=== PATIENT | female | born 1995 | race Caucasian/White ===

== ENCOUNTER 2020-07-19 02:22 | Emergency (ER) | payer OTHER ==
[2020-07-19 02:34] VITALS: TEMP 98.1
[2020-07-19 03:04] LABS: Appearance,Urine Cloudy (Clear); Bacteria,Urine Rare /hpf; Bilirubin,Urine Negative (Negative); Blood,Urine Large (Negative); Color,Urine Light Red; Glucose,Urine (UA) Negative (Negative); Ketones,Urine 3+ (Negative); Leukocyte Esterase,Urine Small (Negative); Mucus,Urine Rare /hpf; Nitrite,Urine Negative (Negative); PH, Urine 5.5 (5.0-8.0); Protein,Urine 1+ (Negative); RBC,Urine >182 /hpf (0-5); Specific Gravity,Urine 1.018 (1.001-1.035); Squamous Epithelial Cell,Urine 6 /hpf (0-4); Urobilinogen,Urine <2.0 mg/dL (<2.0); WBC,Urine 5 /hpf (0-5)
[2020-07-19] MEDS ORDERED: NITROFURANTOIN MONOHYD/M-CRYST 100 MG CAP PO STA (03:48)
[2020-07-19] MEDS ORDERED: PHENAZOPYRIDINE 100 MG TAB PO STA (03:48)
--- NOTE | 2020-07-19 03:50 | ED ---
Female Urogenital HPI - General Chief complaint: Urogenital Stated complaint: Lower abd pain Time Seen by Provider: 07/19/20 02:47 Source: patient Mode of arrival: ambulatory Limitations: no limitations - History of Present Illness Initial comments: This patient is 24-year-old woman who presents to be evaluated for suprapubic pain. This pain is been going on since the evening. She states it is aching, it is worse following urination. She has not noted relieving factors. No nausea or vomiting. No change in bowel movements. In relation to areas, patient states that she has frequent spotting more or less continually. No vaginal discharge. MD Complaint: dysuria, pelvic pain Onset/Timin -: days(s) Location: suprapubic Radiation: non-radiating Severity: moderate Quality: aching Consistency: intermittent Improves with: none Worsens with: urination Patient : No - Related Data Previous Rx's Medication Instructions Recorded Nitrofurantoin Monohyd/M-Cryst 100 mg PO Q12HR #6 cap 07/19/20 [Macrobid] Phenazopyridine [Pyridium] 100 mg PO TID #6 tablet 07/19/20 Allergies Allergy/AdvReac Type Severity Reaction Status Date / Time Penicillins Allergy Rash/Hives Verified 07/19/20 02:34 Review of Systems ROS Statement: Those systems with pertinent positive or pertinent negative responses have been documented in the HPI. ROS Other: All systems not noted in ROS Statement are negative. Constitutional: Denies: fever, chills Respiratory: Denies: cough, dyspnea Cardiovascular: Denies: chest pain, palpitations, edema Gastrointestinal: Reports: as per HPI, abdominal pain. Denies: nausea, vomiting, diarrhea, constipation, melena, hematochezia Genitourinary: Reports: dysuria, abnormal menses. Denies: frequency, hematuria, discharge Musculoskeletal: Denies: back pain Skin: Denies: rash Neurological: Denies: headache, weakness Past Medical History Past Medical History: Asthma, Diabetes Mellitus History of Any Multi-Drug Resistant Organisms: None Reported Past Surgical History: No Surgical Hx Reported Past Psychological History: Anxiety, Depression Smoking Status: Never smoker Past Alcohol Use History: Occasional Past Drug Use History: None Reported General Exam Limitations: no limitations General appearance: alert, in no apparent distress Head exam: Present: atraumatic, normocephalic Eye exam: Present: normal appearance. Absent: scleral icterus, conjunctival injection Respiratory exam: Present: normal lung sounds bilaterally. Absent: respiratory distress, wheezes, rales, rhonchi, stridor Cardiovascular Exam: Present: regular rate, normal rhythm, normal heart sounds. Absent: systolic murmur, diastolic murmur, rubs, gallop GI/Abdominal exam: Present: soft. Absent: distended, tenderness, guarding, rebound, rigid, mass Extremities exam: Present: normal inspection, normal capillary refill. Absent: pedal edema, calf tenderness Back exam: Present: normal inspection. Absent: CVA tenderness (R), CVA tenderness (L) Neurological exam: Present: alert Skin exam: Present: warm, dry, intact, normal color. Absent: rash Course Vital Signs 07/19/20 07/19/20 02:27 04:32 Temperature 98.1 F 98.1 F Pulse Rate 111 H 101 H Respiratory 18 19 Rate Blood Pressure 174/83 121/72 O2 Sat by Pulse 100 98 Oximetry Medical Decision Making - Medical Decision Making Patient is 24-year-old woman with suprapubic pain, worse following urination. Patient does have cells in the urine and will treat for suspected urinary tract infection. We discussed also following up with [facility] for suspected polycystic ovary. No suggestion of appendicitis or surgical intra-abdominal pathology given the exam findings. We did discuss appropriate further care and follow-up including possible need for imaging should anything worsen or symptoms not resolve. - Lab Data Lab Results 07/19/20 07/19/20 Range/Units 02:46 02:46 Urine Color Light Red Urine Appearance Cloudy H (Clear) Urine pH 5.5 (5.0-8.0) Ur Specific [place] 1.018 (1.001-1.035) Urine Protein 1+ H (Negative) Urine Glucose (UA) Negative (Negative) Urine Ketones 3+ H (Negative) Urine Blood Large H (Negative) Urine Nitrite Negative (Negative) Urine Bilirubin Negative (Negative) Urine Urobilinogen <2.0 (<2.0) mg/dL Ur Leukocyte Esterase Small H (Negative) Urine RBC >182 H (0-5) /hpf Urine WBC 5 (0-5) /hpf Ur Squamous Epith Cells 6 H (0-4) /hpf Urine Bacteria Rare H (None) /hpf Urine Mucus Rare H (None) /hpf Urine HCG, Qual Not Detected (Not Detectd) Disposition Clinical Impression: Urinary tract infection Disposition: HOME SELF-CARE Condition: Good Instructions (If sedation given, give patient instructions): Urinary Tract Infection in Women (ED) Prescriptions: Nitrofurantoin Monohyd/M-Cryst [Macrobid] 100 mg PO Q12HR #6 cap Phenazopyridine [Pyridium] 100 mg PO TID #6 tablet Is patient prescribed a controlled substance at d/c from ED?: No Referrals: Swapnil Machado MD [Primary Care Provider] - 1-2 days
[2020-07-19 04:48] VITALS: BP 121/72; PULSE 101; RESP 19
== END 2020-07-19 04:32 | disposition home or self-care (01) ==
LOC: EC 02:22
DX: N39.0 Urinary tract infection, site not specified (principal); Z88.0 Allergy status to penicillin
CPT/HCPCS: 81001; 81025; 99284

== ENCOUNTER 2020-07-19 10:50 | Emergency (ER) | payer OTHER ==
[2020-07-19 10:54] VITALS: TEMP 98.2
[2020-07-19] MEDS ORDERED: SODIUM CHLORIDE 0.9% 1,000 ML IV STA (11:35)
[2020-07-19] MEDS ORDERED: ONDANSETRON 4 MG/2 ML VIAL IVP STA (11:36)
[2020-07-19] MEDS ORDERED: KETOROLAC 15 MG/ML 1 ML VIAL IVP STA (11:36)
--- NOTE | 2020-07-19 11:52 | ED ---
General Adult HPI - General Chief complaint: Abdominal Pain Stated complaint: lower abd pain Time Seen by Provider: 07/19/20 10:58 Source: patient, RN notes reviewed Mode of arrival: ambulatory Limitations: no limitations - History of Present Illness Initial comments: 24-year-old female with a past medical history of kidney stones presents to the emergency department for a chief complaint of abdominal pain. Patient reports the pain started on the right lower quadrant around 10 PM. It was a sudden pain. States the pain is the same in intensity as her previous kidney stone. Admits to mild nausea with this. Patient was seen in the emergency room and diagnosed with a urinary tract infection. Patient reports that the pain is worsening. She does not have any fevers. Denies diarrhea. Denies any vaginal discharge. Patient has no other complaints at this time including shortness of breath, chest pain, vomiting, headache, or visual changes. - Related Data Home Medications Medication Instructions Recorded Confirmed Fluticasone Nasal [place] [Flonase 2 spray EA NOSTRIL DAILY 07/19/20 07/19/20 Nasal [place]] Loratadine [Claritin] 10 mg PO DAILY 07/19/20 07/19/20 Omeprazole 20 mg PO DAILY 07/19/20 07/19/20 metFORMIN HCL 500 mg PO DAILY 07/19/20 07/19/20 Previous Rx's Medication Instructions Recorded Ibuprofen [Motrin] 600 mg PO Q6HR PRN #20 tab 07/19/20 Ondansetron [Zofran ODT] 4 mg PO Q8HR PRN #15 tab 07/19/20 Allergies Allergy/AdvReac Type Severity Reaction Status Date / Time Penicillins Allergy Rash/Hives Verified 07/19/20 12:42 Review of Systems ROS Statement: Those systems with pertinent positive or pertinent negative responses have been documented in the HPI. ROS Other: All systems not noted in ROS Statement are negative. Past Medical History Past Medical History: Asthma, Diabetes Mellitus History of Any Multi-Drug Resistant Organisms: None Reported Past Surgical History: No Surgical Hx Reported Past Psychological History: Anxiety, Depression Smoking Status: Never smoker Past Alcohol Use History: Occasional Past Drug Use History: None Reported General Exam Limitations: no limitations General appearance: alert, in no apparent distress Head exam: Present: atraumatic, normocephalic, normal inspection Eye exam: Present: normal appearance, PERRL, EOMI. Absent: scleral icterus, conjunctival injection, periorbital swelling ENT exam: Present: normal exam, mucous membranes moist Neck exam: Present: normal inspection. Absent: tenderness, meningismus, lymphadenopathy Respiratory exam: Present: normal lung sounds bilaterally. Absent: respiratory distress, wheezes, rales, rhonchi, stridor Cardiovascular Exam: Present: regular rate, normal rhythm, normal heart sounds. Absent: systolic murmur, diastolic murmur, rubs, gallop, clicks GI/Abdominal exam: Present: soft, normal bowel sounds. Absent: distended, tenderness (No abdominal tenderness whatsoever. Negative Almodovar sign. No tenderness at McBurney point. Negative Rovsing, obturator signs.), guarding, rebound, rigid Back exam: Absent: CVA tenderness (R), CVA tenderness (L) Neurological exam: Present: alert Course Vital Signs 07/19/20 07/19/20 07/19/20 10:52 12:09 14:25 Temperature 98.2 F Pulse Rate 112 H 89 87 Respiratory 16 18 18 Rate Blood Pressure 159/103 122/69 132/78 O2 Sat by Pulse 98 99 99 Oximetry Medical Decision Making - Medical Decision Making Vitals are stable. Patient initially tachycardic however this improved to the 80s for her stay. CBC CMP unremarkable. She does has minimal transaminitis likely on the basis of hepatis steatosis given body habitus. She does not have any right upper quadrant tenderness or right lower quadrant tenderness. Her abdomen exam is completely benign. Urinalysis does show 182 red blood cells. Patient has a history of kidney stones. I saw her KUB is negative. Ultrasound does not show any evidence of hydronephrosis. However patient's pain is completely resolved at this time. Patient possibly passed stone. At this time patient is scheduled discharged home. I did recommend that if she has any wo rsening pain or fevers to return to the emergency room. Otherwise she will follow-up with her doctor and urology. - Lab Data Result diagrams: 07/19/20 11:48 07/19/20 11:48 Lab Results 07/19/20 07/19/20 07/19/20 Range/Units 11:48 11:48 11:48 WBC 9.6 (3.8-10.6) k/uL RBC 5.17 (3.80-5.40) m/uL Hgb 14.0 (11.4-16.0) gm/dL Hct 42.8 (34.0-46.0) % MCV 82.9 (80.0-100.0) fL MCH 27.1 (25.0-35.0) pg MCHC 32.7 (31.0-37.0) g/dL RDW 14.2 (11.5-15.5) % Plt Count 290 (150-450) k/uL Neutrophils % 56 % Lymphocytes % 32 % Monocytes % 6 % Eosinophils % 4 % Basophils % 1 % Neutrophils # 5.4 (1.3-7.7) k/uL Lymphocytes # 3.1 (1.0-4.8) k/uL Monocytes # 0.5 (0-1.0) k/uL Eosinophils # 0.3 (0-0.7) k/uL Basophils # 0.1 (0-0.2) k/uL Sodium 136 L (137-145) mmol/L Potassium 4.1 (3.5-5.1) mmol/L Chloride 104 (98-107) mmol/L Carbon Dioxide 20 L (22-30) mmol/L Anion Gap 12 mmol/L BUN 9 (7-17) mg/dL Creatinine 0.62 (0.52-1.04) mg/dL Est GFR (CKD-EPI)AfAm >90 (>60 ml/min/1.73 sqM) Est GFR (CKD-EPI)NonAf >90 (>60 ml/min/1.73 sqM) Glucose 104 H (74-99) mg/dL Calcium 9.2 (8.4-10.2) mg/dL Total Bilirubin 0.8 (0.2-1.3) mg/dL AST 86 H (14-36) U/L ALT 63 H (4-34) U/L Alkaline Phosphatase 73 (38-126) U/L Total Protein 7.0 (6.3-8.2) g/dL Albumin 4.2 (3.5-5.0) g/dL Amylase <30 L (30-110) U/L Lipase 55 (23-300) U/L Urine Color [place] Urine Appearance Cloudy H (Clear) Urine pH 5.5 (5.0-8.0) Ur Specific [place] 1.009 (1.001-1.035) Urine Protein Trace H (Negative) Urine Glucose (UA) Negative (Negative) Urine Ketones 3+ H (Negative) Urine Blood Large H (Negative) Urine Nitrite Negative (Negative) Urine Bilirubin Negative (Negative) Urine Urobilinogen <2.0 (<2.0) mg/dL Ur Leukocyte Esterase Small H (Negative) Urine RBC >182 H (0-5) /hpf Urine WBC 6 H (0-5) /hpf Ur Squamous Epith Cells 8 H (0-4) /hpf Amorphous Sediment Rare H (None) /hpf Urine Bacteria Occasional H (None) /hpf Disposition Clinical Impression: Renal colic on right side Disposition: HOME SELF-CARE Condition: Good Instructions (If sedation given, give patient instructions): Abdominal Pain (ED) Additional Instructions: Please take Motrin for pain. You may take 600 mg every 6 hours. If pain is severe take Tylenol [address] operate machinery while taking this. Take Zofran as needed for nausea. Follow up with urology in 1-2 days. Return to the emergency room if you have any worsening symptoms. Prescriptions: Ibuprofen [Motrin] 600 mg PO Q6HR PRN #20 tab PRN Reason: Pain Ondansetron [Zofran ODT] 4 mg PO Q8HR PRN #15 tab PRN Reason: Nausea Is patient prescribed a controlled substance at d/c from ED?: No Referrals: Swapnil Machado MD [Primary Care Provider] - 1-2 days Time of Disposition: 14:36
[2020-07-19 12:11] VITALS: RESP 18
--- NOTE | 2020-07-19 12:15 | XR ---
EXAMINATION TYPE: XR KUB DATE OF EXAM: 07/19/2020 12:07 PM CLINICAL HISTORY: Lower abdominal pain. TECHNIQUE: Two Upright KUB images of the abdomen are obtained. COMPARISON: None. FINDINGS: Some paucity of bowel gas. Visualized gas noted in nondistended scattered small and large b owel loops There is no visceromegaly, pneumoperitoneum, or abnormal calcification appreciated. There appears to be low lung volumes and mild cardiomegaly, correlate clinically. Consider chest x-ray hans elation. Visualized osseous structures are intact. IMPRESSION: Overall nonspecific but strongly favor nonobstructive bowel gas pattern.
[2020-07-19 12:23] LABS: Basophils # (A) 0.1 k/uL (0-0.2); Basophils % (A) 1 %; Eosinophils # (A) 0.3 k/uL (0-0.7); Eosinophils % (A) 4 %; HCT 42.8 % (34.0-46.0); Lymphocytes # (A) 3.1 k/uL (1.0-4.8); Lymphocytes % (A) 32 %; MCH 27.1 pg (25.0-35.0); MCHC 32.7 g/dL (31.0-37.0); MCV 82.9 fL (80.0-100.0); Mean Platelet Volume 7.1; Monocytes # (A) 0.5 k/uL (0-1.0); Monocytes % (A) 6 %; Neutrophils # (A) 5.4 k/uL (1.3-7.7); Neutrophils % (A) 56 %; Platelet Count 290 k/uL (150-450); RBC 5.17 m/uL (3.80-5.40); RDW 14.2 % (11.5-15.5); WBC 9.6 k/uL (3.8-10.6)
[2020-07-19 12:35] LABS: Amorphous Sediment,Urine Rare /hpf; Appearance,Urine Cloudy (Clear); Bacteria,Urine Occasional /hpf; Bilirubin,Urine Negative (Negative); Blood,Urine Large (Negative); Color,Urine Orange; Glucose,Urine (UA) Negative (Negative); Ketones,Urine 3+ (Negative); Leukocyte Esterase,Urine Small (Negative); Nitrite,Urine Negative (Negative); PH, Urine 5.5 (5.0-8.0); Protein,Urine Trace (Negative); RBC,Urine >182 /hpf (0-5); Specific Gravity,Urine 1.009 (1.001-1.035); Squamous Epithelial Cell,Urine 8 /hpf (0-4); Urobilinogen,Urine <2.0 mg/dL (<2.0); WBC,Urine 6 /hpf (0-5)
[2020-07-19 12:42] LABS: ALT 63 U/L (4-34); AST 86 U/L (14-36); African American GFR (CKD) >90 (>60 ml/min/1.73 sqM); Albumin 4.2 g/dL (3.5-5.0); Alkaline Phosphatase 73 U/L (38-126); Amylase <30 U/L (30-110); Anion Gap 12 mmol/L; Blood Urea Nitrogen 9 mg/dL (7-17); Calcium 9.2 mg/dL (8.4-10.2); Carbon Dioxide 20 mmol/L (22-30); Chloride 104 mmol/L (98-107); Glucose 104 mg/dL (74-99); Non-African American GFR(CKD) >90 (>60 ml/min/1.73 sqM); Potassium 4.1 mmol/L (3.5-5.1); Sodium 136 mmol/L (137-145); Total Bilirubin 0.8 mg/dL (0.2-1.3)
--- NOTE | 2020-07-19 14:12 | US ---
EXAMINATION TYPE: US kidneys/renal and bladder DATE OF EXAM: 07/19/2020 COMPARISON: NONE CLINICAL HISTORY: stone. RLQ abdominal pain x 1 day EXAM MEASUREMENTS: Right Kidney: 13.5 x 6.5 x 5.9 cm Left Kidney: 13.9 x 7.0 x 5.5 cm Right Kidney: Normal. Left Kidney: Normal. Bladder: Underdistended and otherwise normal. Bilateral Jets seen: Left only Suboptimal exam due to body habitus. IMPRESSION: 1. No hydronephrosis bilaterally. 2. Underdistended urinary bladder.
[2020-07-19 14:28] VITALS: BP 132/78; PULSE 87
[2020-07-19] MEDS ORDERED: ACET/COD 300 MG/30 MG STARTER PACK 6 TAB BTL PO STA (14:38)
== END 2020-07-19 14:55 | disposition home or self-care (01) ==
LOC: EC 10:50
DX: N23 Unspecified renal colic (principal); E11.9 Type 2 diabetes mellitus without complications; J45.909 Unspecified asthma, uncomplicated; R00.0 Tachycardia, unspecified; R74.0 Nonspecific elevation of levels of transaminase and lactic acid dehydrogenase [LDH]; Z79.84 Long term (current) use of oral hypoglycemic drugs; Z79.51 Long term (current) use of inhaled steroids; Z79.899 Other long term (current) drug therapy; Z88.0 Allergy status to penicillin; Z87.442 Personal history of urinary calculi
CPT/HCPCS: 99284 ×3; 96374 ×2; 96375 ×2; 96361 ×2; 36415; 80053; 82150; 83690; 85025; 81001; 81025; 74018; 76770; J2405; J1885

== ENCOUNTER → 2021-02-03 | Outpatient (CLI) | payer OTHER ==
--- NOTE | 2021-02-03 12:48 | US ---
EXAMINATION TYPE: US pelvic complete DATE OF EXAM: 02/03/2021 COMPARISON: NONE CLINICAL HISTORY: N95.0 Postmenopausal bleeding. Patient states she gets cramps and spotting while wa lking. TECHNIQUE: Transabdominal (TA). Transabdominal sonographic images of the pelvis were acquired. Date of LMP: 01/26/2021, G0 EXAM MEASUREMENTS: Uterus: 8.8 x 4.5 x 3.2 cm Endometrial Stripe: 0.5 cm Right Ovary: 3.3 x 2.4 x 2.3 cm Left Ovary: 3.2 x 1.9 x 2.0 cm 1. Uterus: Anteverted wnl 2. Endometrium: There may be a septation present 3. Right Ovary: wnl 4. Left Ovary: wnl 5. Bilateral Adnexa: wnl 6. Posterior cul-de-sac: free fluid seen Cervix- wnl Urinary bladder is sonolucent. Posterior wall is normal. IMPRESSION: 1. There may be a partial septation at the fundus of the uterus identified by the transverse image th rough the fundus. This could be better evaluated with MRI. 2. [place] ultrasound is otherwise unremarkable.
== END | disposition home or self-care (01) ==
LOC: RADUSWWP 10:46
PROVIDERS: ATTEND Obstetrics & Gynecology
DX: N95.0 Postmenopausal bleeding (principal)
CPT/HCPCS: 76856

== ENCOUNTER 2021-02-21 07:00 | Day surgery (SDC) | payer OTHER ==
[2021-02-15 16:00] VITALS: BMI 65.2
--- NOTE | 2021-02-21 06:45 | P.HPOB ---
History of Present Illness H&P Date: 02/21/21 Chief Complaint: Dysfunctional Uterine Bleeding 25 year old G0 presents for D&C hysteroscopy. She had no period for a very long time and is now having heavy and irregular cycles. She would like to conceive so we are here to sample and evaluate the endometrium. Review of Systems All systems: negative Constitutional: Denies chills, Denies fever Eyes: denies blurred vision, denies pain Ears, nose, mouth and throat: Denies headache, Denies sore throat Cardiovascular: Denies chest pain, Denies shortness of breath Respiratory: Denies cough Gastrointestinal: Denies abdominal pain, Denies diarrhea, Denies nausea, Denies vomiting Genitourinary: Denies dysuria, Denies hematuria Musculoskeletal: Denies myalgias Integumentary: Denies pruritus, Denies rash Neurological: Denies numbness, Denies weakness Psychiatric: Denies anxiety, Denies depression Endocrine: Denies fatigue, Denies weight change Past Medical History Past Medical History: Asthma, Diabetes Mellitus, GERD/Reflux Additional Past Medical History / Comment(s): asthma as a child, no current problems, seasonal allergies, kidney stones, heavy periods & spotting History of Any Multi-Drug Resistant Organisms: None Reported Past Surgical History: No Surgical Hx Reported Additional Past Surgical History / Comment(s): tooth extracted Past Anesthesia/Blood Transfusion Reactions: No Reported Reaction Smoking Status: Never smoker Medications and Allergies Home Medications Medication Instructions Recorded Confirmed Type Fluticasone Nasal [place] [Flonase 2 spray EA NOSTRIL DAILY PRN 07/19/20 02/15/21 History Nasal [place]] Loratadine [Claritin] 10 mg PO DAILY 07/19/20 02/15/21 History Omeprazole 20 mg PO DAILY 07/19/20 02/15/21 History metFORMIN HCL 500 mg PO DAILY 07/19/20 02/15/21 History Cholecalciferol [Vitamin D3 (25 25 mcg PO DAILY 02/15/21 02/15/21 History Mcg = 1000 Iu)] [place]-3 Fatty Acids/Fish Oil [Fish 1 each PO DAILY 02/15/21 02/15/21 History Oil 1,000 mg Softgel] Allergies Allergy/AdvReac Type Severity Reaction Status Date / Time Penicillins Allergy Rash/Hives Verified 02/15/21 15:32 Exam Osteopathic Statement: *. No significant issues noted on an osteopathic structural exam other than those noted in the History and Physical/Consult. HEart: RRR Lungs: CTAB Abdomen: soft, nontender Extremeties: neg laurie's Assessment and Plan (1) Dysfunctional uterine bleeding Status: Acute Code(s): N93.8 - OTHER SPECIFIED ABNORMAL UTERINE AND VAGINAL BLEEDING SNOMED Code(s): 92816259141366 Plan: 1. D&C hysteroscopy
[~2021-02-21 07:00] MED LIST: LACTATED RINGERS 1,000 ML IV SCH; LIDOCAINE 1% (10MG/ML) FOR IV START INTRADERMA PRN; Pre Op ABX Message 1 EACH MISC MISCELLANE ONE
[2021-02-21] MEDS ORDERED: ONDANSETRON 4 MG/2 ML VIAL ONE (07:34)
[2021-02-21 07:46] LABS: Glucose,Whole Blood 217 mg/dL (75-99)
[2021-02-21] MEDS ORDERED: DEXAMETHASONE SOD PHOSPHATE 4 MG/ML 1 ML VIAL IVP ONE (07:54)
[2021-02-21 07:57] VITALS: TEMP 97
[2021-02-21] MEDS ORDERED: GLYCOPYRROLATE 0.2 MG/ML 2 ML VIAL ONE (08:11)
[2021-02-21] MEDS ORDERED: fentaNYL (PF) 50 MCG/ML 2 ML AMP ONE (08:11)
[2021-02-21] MEDS ORDERED: ALBUTEROL HFA INHALER INHALATION ONE (08:11)
[2021-02-21] MEDS ORDERED: LIDOCAINE 1% INJ 10MG/ML (20 ML MDV) ONE (08:11)
[2021-02-21] MEDS ORDERED: SUCCINYLCHOLINE CHLORIDE 100 MG/5 ML SYR IV ONE (08:11)
[2021-02-21] MEDS ORDERED: MIDAZOLAM 2 MG/2 ML VIAL ONE (08:11)
[2021-02-21] MEDS ORDERED: PROPOFOL 10 MG/ML 20 ML VIAL IV ONE (08:11)
--- NOTE | 2021-02-21 09:06 | P.OP ---
Date of Procedure: 02/21/21 Preoperative Diagnosis: 1. DUB Postoperative Diagnosis: 1. DUB Procedure(s) Performed: D&C hysteroscopy Anesthesia: HANANE Surgeon: Sarika Reno Estimated Blood Loss (ml): 3 IV fluids (ml): 300 Urine output (ml): 50 Pathology: other (endometrial currettings) Condition: stable Disposition: PACU Operative Findings: Uterus sounded to 7cm. normal smooth contour of uterus. moderate amount endometrial currettings Description of Procedure: Patient is taken the operating room where general anesthesia was obtained without difficulty. She was prepped and draped in normal sterile fashion dorsal lithotomy position, legs placed in the Nuno stirrups. Bladder was drained of all urine. Weighted speculum placed in the vagina and the anterior lip the cervix was grasped with serial tooth tenaculum. The uterus sounded to 7 cm. The cervix was dilated to #8 Hegar dilator. Hysteroscopy was then performed. Both ostia were visualized and there was a smooth contour of the uterus. Sharp curet was then gently used to obtain endometrial curettings. All instruments removed from the vagina. Patient tolerated the procedure well though she did have a few episodes of bronchospasm. Sponge and instrument counts were correct 2 and she was taken to recovery in stable condition.
[2021-02-21] MEDS: fentaNYL (PF) 50 MCG/ML 2 ML AMP IV PRN ×2 (09:14→09:26)
[2021-02-21 09:58] VITALS: BP 135/81; PULSE 114; RESP 20
== END 2021-02-21 10:40 | disposition home or self-care (01) ==
LOC: OR 07:00
PROVIDERS: ATTEND Obstetrics & Gynecology
DX: N93.8 Other specified abnormal uterine and vaginal bleeding (principal); E11.9 Type 2 diabetes mellitus without complications; K21.9 Gastro-esophageal reflux disease without esophagitis; Z87.09 Personal history of other diseases of the respiratory system; Z87.442 Personal history of urinary calculi; J30.2 Other seasonal allergic rhinitis; Z98.890 Other specified postprocedural states; Z79.84 Long term (current) use of oral hypoglycemic drugs; Z79.899 Other long term (current) drug therapy; Z88.0 Allergy status to penicillin
CPT/HCPCS: 81025; 58558; J2250; J1100; J2405; J2001; J3010; J0330; J2704; 88305

== ENCOUNTER 2021-02-26 20:59 | Emergency (ER) | payer OTHER ==
[2021-02-26] MEDS ORDERED: SODIUM CHLORIDE 0.9% 500 ML 500 ML IV STA (21:25)
[2021-02-26] MEDS ORDERED: IBUPROFEN 600 MG TAB PO STA (21:26)
[2021-02-26] MEDS ORDERED: ACETAMINOPHEN TAB 325 MG TAB PO STA (21:26)
--- NOTE | 2021-02-26 21:38 | ED ---
Chest Pain HPI - General Chief Complaint: Chest Pain Stated Complaint: Chest Pain Time Seen by Provider: 02/26/21 21:06 Source: patient Mode of arrival: ambulatory Limitations: no limitations - History of Present Illness Initial Comments: This patient is 25-year-old woman who presents with pain at the right upper sternal border. The patient states that the pain feels like when you take a deep breath when it is cold outside. She noted that the pain was present after she had been intubated to have a D&C performed. The pain is a little worse with inspiration. She has had a little bit of cough which is starting to improve area there is no sputum. No hemoptysis. No dyspnea. She has not noted any leg pain or swelling following the procedure MD Complaint: chest pain Onset/Timin -: days(s) Onset: during rest Pain Location: substernal, right chest Pain Radiation: none Severity: moderate Quality: sharp, other (Burning) Consistency: constant Improves With: nothing Worsens With: inspiration Other Symptoms: cough Treatments Prior to Arrival: none - Related Data Home Medications Medication Instructions Recorded Confirmed Loratadine [Claritin] 10 mg PO DAILY 07/19/20 02/26/21 Omeprazole 20 mg PO DAILY 07/19/20 02/26/21 metFORMIN HCL 500 mg PO DAILY 07/19/20 02/26/21 Albuterol Sulfate [Proair Hfa] 2 puff INHALATION RT-Q6H PRN 02/26/21 02/26/21 Previous Rx's Medication Instructions Recorded Sulfamethox-Tmp 800-160Mg [Bactrim 1 each PO Q12HR #14 tab 02/26/21 Ds] Allergies Allergy/AdvReac Type Severity Reaction Status Date / Time Penicillins Allergy Rash/Hives Verified 02/26/21 21:56 Review of Systems ROS Statement: Those systems with pertinent positive or pertinent negative responses have been documented in the HPI. ROS Other: All systems not noted in ROS Statement are negative. Constitutional: Reports: fever. Denies: chills Respiratory: Reports: cough. Denies: dyspnea, wheezes, hemoptysis Cardiovascular: Reports: chest pain. Denies: palpitations, orthopnea, edema, syncope Gastrointestinal: Denies: abdominal pain, nausea, vomiting, diarrhea Genitourinary: Denies: dysuria, hematuria Musculoskeletal: Denies: back pain Skin: Denies: rash Neurological: Denies: headache EKG Findings - EKG Results: EKG: interpreted by ERMD, sinus rhythm, normal QRS, normal ST/T EKG shows: tachycardia (Rate 119 bpm) - Blocks, [place], Hypertrophy, ST Abn: QRS axis and voltage: right axis deviation (+90 to +180) Past Medical History Past Medical History: Asthma, Diabetes Mellitus History of Any Multi-Drug Resistant Organisms: None Reported Past Surgical History: No Surgical Hx Reported Additional Past Surgical History / Comment(s): d&C Past Psychological History: Anxiety, Depression Smoking Status: Never smoker General Exam Limitations: no limitations General appearance: alert, in no apparent distress Head exam: Present: atraumatic, normocephalic Eye exam: Present: normal appearance Respiratory exam: Present: normal lung sounds bilaterally. Absent: respiratory distress, wheezes, rales, rhonchi, stridor, chest wall tenderness, accessory muscle use, decreased breath sounds, prolonged expiratory Cardiovascular Exam: Present: normal rhythm, tachycardia, normal heart sounds. Absent: systolic murmur, diastolic murmur, rubs, gallop GI/Abdominal exam: Present: soft. Absent: distended, tenderness, guarding, rebound, rigid, mass Extremities exam: Present: normal inspection, normal capillary refill. Absent: pedal edema, calf tenderness Back exam: Present: normal inspection. Absent: CVA tenderness (R), CVA tenderness (L) Neurological exam: Present: alert Skin exam: Present: warm, dry, intact, normal color. Absent: rash Course Vital Signs 02/26/21 02/26/21 02/26/21 21:02 21:48 22:13 Temperature 100.5 F H 101.8 F H Pulse Rate 127 H 110 H Pulse Rate [ 112 H Magnetic Tape Winder ] Respiratory 18 16 Rate Blood Pressure 164/89 134/69 O2 Sat by Pulse 99 98 Oximetry Disposition Disposition: HOME SELF-CARE Condition: Good Instructions (If sedation given, give patient instructions): Chest Pain (ED) Prescriptions: Sulfamethox-Tmp 800-160Mg [Bactrim Ds] 1 each PO Q12HR #14 tab Is patient prescribed a controlled substance at d/c from ED?: No Referrals: Swapnil Machado MD [Primary Care Provider] - 1-2 days
[2021-02-26 21:55] LABS: Basophils # (A) 0.1 k/uL (0-0.2); Basophils % (A) 1 %; Eosinophils # (A) 0.3 k/uL (0-0.7); Eosinophils % (A) 3 %; HCT 40.8 % (34.0-46.0); HGB 13.8 gm/dL (11.4-16.0); Lymphocytes % (A) 23 %; MCHC 33.8 g/dL (31.0-37.0); Mean Platelet Volume 6.4; Monocytes # (A) 0.5 k/uL (0-1.0); Monocytes % (A) 5 %; Neutrophils # (A) 5.7 k/uL (1.3-7.7); Neutrophils % (A) 66 %; Platelet Count 280 k/uL (150-450); RDW 14.8 % (11.5-15.5); WBC 8.7 k/uL (3.8-10.6)
[2021-02-26 22:02] LABS: ALT 41 U/L (4-34); AST 57 U/L (14-36); African American GFR (CKD) >90 (>60 ml/min/1.73 sqM); Albumin 4.3 g/dL (3.5-5.0); Alkaline Phosphatase 105 U/L (38-126); Anion Gap 9 mmol/L; Blood Urea Nitrogen 12 mg/dL (7-17); Calcium 9.7 mg/dL (8.4-10.2); Carbon Dioxide 27 mmol/L (22-30); Chloride 98 mmol/L (98-107); Glucose 155 mg/dL (74-99); Non-African American GFR(CKD) >90 (>60 ml/min/1.73 sqM); Potassium 4.1 mmol/L (3.5-5.1); Sodium 134 mmol/L (137-145); Total Bilirubin 0.5 mg/dL (0.2-1.3); Total Protein 7.4 g/dL (6.3-8.2)
--- NOTE | 2021-02-26 22:09 | XR ---
EXAMINATION TYPE: XR chest 2V DATE OF EXAM: 02/26/2021 COMPARISON: NONE HISTORY: Chest pain TECHNIQUE: 2 views FINDINGS: Heart and mediastinum are normal. Lungs are clear. Diaphragm is normal. Bony thorax appears normal. IMPRESSION: Normal chest.
[2021-02-26 23:15] VITALS: RESP 18
[2021-02-26 23:36] LABS: Appearance,Urine Clear (Clear); Bilirubin,Urine Negative (Negative); Blood,Urine Large (Negative); Color,Urine Colorless; Glucose,Urine (UA) Negative (Negative); Ketones,Urine Trace (Negative); Leukocyte Esterase,Urine Negative (Negative); Nitrite,Urine Negative (Negative); PH, Urine 6.5 (5.0-8.0); Protein,Urine Negative (Negative); RBC,Urine 13 /hpf (0-5); Specific Gravity,Urine 1.006 (1.001-1.035); Squamous Epithelial Cell,Urine 2 /hpf (0-4); Urobilinogen,Urine <2.0 mg/dL (<2.0); WBC,Urine 1 /hpf (0-5)
[2021-02-27 01:20] VITALS: PULSE 98
[2021-02-27 01:22] VITALS: BP 138/88; TEMP 99.2
== END 2021-02-27 01:20 | disposition home or self-care (01) ==
LOC: EC 20:59
DX: R07.89 Other chest pain (principal); J45.909 Unspecified asthma, uncomplicated; E11.9 Type 2 diabetes mellitus without complications; F32.9 Major depressive disorder, single episode, unspecified
CPT/HCPCS: 36415; 71046; 80053; 81001; 84484; 85025; 85379; 87635; 93005; 96360; 96361; 99285

== ENCOUNTER → 2021-03-22 | Outpatient (CLI) | payer OTHER ==
--- NOTE | 2021-03-22 16:00 | XR ---
EXAMINATION TYPE: XR chest 1V DATE OF EXAM: 03/22/2021 COMPARISON: Chest x-ray 02/26/2021 HISTORY: Z03.89 TECHNIQUE: Single frontal view of the chest is obtained. FINDINGS: There is no focal air space opacity, pleural effusion, or pneumothorax seen. The cardiac silhouette size is within normal limits. There is stable elevation of the right hemidiaphragm. The o sseous structures are intact. IMPRESSION: No acute process.
== END | disposition home or self-care (01) ==
LOC: RADXRMAIN 13:46
PROVIDERS: ATTEND Obstetrics & Gynecology
DX: Z03.89 Encounter for observation for other suspected diseases and conditions ruled out (principal)
CPT/HCPCS: 71045

== ENCOUNTER → 2021-04-21 | Outpatient (CLI) | payer OTHER ==
--- NOTE | 2021-04-22 06:59 | CT ---
EXAMINATION TYPE: CT abdomen pelvis wo con DATE OF EXAM: 04/21/2021 HISTORY: pre-op hysterectomy, abnormal biopsy. CT DLP: 1267 mGycm. Automated Exposure Control for Dose Reduction was Utilized. TECHNIQUE: CT scan of the abdomen and pelvis is performed with oral but without IV contrast. COMPARISON: Pelvic ultrasound February 03, 2021 FINDINGS: Within the limitations of a non-contrast study, the following observations are made. LUNG BASES: No significant abnormality is appreciated. LIVER/GB: Visualized liver is low dense consistent with diffuse fatty infiltration. Hepatomegaly is p resent. PANCREAS: No significant abnormality is seen. SPLEEN: No significant abnormality is seen. ADRENALS: No significant abnormality is seen. KIDNEYS: No significant abnormality is seen. BOWEL: Oral contrast reaches rectum. No suspicious small or large bowel dilatation. Normal contrast-f illed appendix. GENITAL ORGANS: Anteverted normal-sized uterus. Ovaries symmetric and normal in size on axial image 8 5. LYMPH NODES: No greater than 1cm abdominal or pelvic lymph nodes are appreciated. A few scattered sli ghtly prominent but subcentimeter upper to mid abdominal mesenteric lymph nodes. OSSEOUS STRUCTURES: No significant abnormality is seen. OTHER: Mild subcutaneous edema over the pelvis. IMPRESSION: No acute findings. No suspicious mass or adenopathy noted
== END | disposition home or self-care (01) ==
LOC: RADCTMAIN 15:42
PROVIDERS: ATTEND Obstetrics & Gynecology
DX: Z03.89 Encounter for observation for other suspected diseases and conditions ruled out (principal)
CPT/HCPCS: 74176

== ENCOUNTER → 2021-04-25 | Outpatient (CLI) | payer OTHER ==
[2021-04-25 11:35] LABS: Amorphous Sediment,Urine Rare /hpf; Appearance,Urine Cloudy (Clear); Bacteria,Urine Rare /hpf; Bilirubin,Urine Negative (Negative); Blood,Urine Negative (Negative); Color,Urine Yellow; Glucose,Urine (UA) 3+ (Negative); Ketones,Urine 1+ (Negative); Leukocyte Esterase,Urine Small (Negative); Mucus,Urine Rare /hpf; Nitrite,Urine Negative (Negative); Protein,Urine Trace (Negative); RBC,Urine 1 /hpf (0-5); Specific Gravity,Urine 1.028 (1.001-1.035); Squamous Epithelial Cell,Urine 30 /hpf (0-4); Urobilinogen,Urine <2.0 mg/dL (<2.0); WBC,Urine 11 /hpf (0-5)
== END | disposition home or self-care (01) ==
LOC: LABWHC1 09:37
PROVIDERS: ATTEND Obstetrics & Gynecology
DX: Z01.812 Encounter for preprocedural laboratory examination (principal); Z20.822 Contact with and (suspected) exposure to COVID-19
CPT/HCPCS: 81001; 81025; U0003; C9803; U0005